=== PATIENT | male | born 1975 | race Caucasian/White ===

== ENCOUNTER → 2018-07-07 | Outpatient (CLI) | payer MEDICARE | LOC: M RAD 17:01 | DX: M75.41 Impingement syndrome of right shoulder (principal) ==

== ENCOUNTER → 2022-06-14 | Outpatient (CLI) | payer MEDICARE, MEDICAID ==
[~2022-06-14] MED LIST: ADV250INH INH; HYZA100T2 PO; NORV2TAB PO; PRIL20CA PO; SING5CHW PO; ULTR37.539 PO; VENTAER INH
== END ==
LOC: M PLAIMG 10:37
PROVIDERS: ATTEND Pain Medicine Interventional Pain Medicine
DX: M50.221 Other cervical disc displacement at C4-C5 level (principal); Z53.9 Procedure and treatment not carried out, unspecified reason